=== PATIENT | female | born 1945 | race Caucasian/White ===

== ENCOUNTER → 2016-04-28 | Day surgery (SDC) | payer MEDICARE ==
--- NOTE | 2016-04-05 14:31 | MH ---
cc: AMA FRANKS DATE OF ADMISSION: 04/28/2016 ADMITTING DIAGNOSIS: Cataract right eye. HISTORY OF PRESENT ILLNESS This 70-year-old white female is coming through [facility] for the purpose of a lens extraction of the right eye with intraocular lens implant under local anesthesia. She has noted decreasing visual acuity interfering with her daily activities and elected to have the above procedure. Her best corrected visual acuity in room light in the right eye is 20/40 +2. The left eye has 20/20 -2 and has had cataract surgery in the past. PAST MEDICAL HISTORY The patient has a history of cholesterol problems and hypo thyroid. PAST SURGICAL HISTORY: The surgical history includes the above-mentioned cataract surgery with intraocular lens implant on the left eye and back surgery. MEDICATIONS medications include 1. Synthroid 2. Atorvastatin 3. Multivitamins 4. 81 mg of aspirin. 5. Vitamin D3. 6. Fish oil 7. Calcium 8. Occasionally an allergy pill. ALLERGIES She is not allergic to medication ADHESIVE TAPE. SOCIAL HISTORY She was a two pack per day smoker for 20 years but stopped smoking over 20 years ago and she does not drink alcohol. FAMILY HISTORY: Family history is noncontributory. REVIEW OF SYSTEMS: HEAD: Patient denies severe headaches, dizziness or recent head injury. EARS: Patient denies hearing loss, ear pain, discharge or ringing in the ears. NOSE: Patient denies nasal discharge, obstruction or frequent colds. MOUTH AND THROAT: Patient denies soreness of the mouth or tongue, bleeding gums, trouble swallowing, changes in voice or sore throat. NECK: Patient denies neck pain or swelling, limitation of neck movement or neck injury. CARDIOPULMONARY SYSTEM: Patient denies shortness of breath, orthopnea, chronic cough, sputum production, hemoptysis, chest pain, wheezing, palpitations or light-headedness. GI SYSTEM: Patient denies poor appetite, nausea, vomiting, abdominal pain, ulcers, hemorrhoids or change in bowel habits. SYSTEM: The patient denies urinary frequency, dysuria, change in urine color. NERVOUS SYSTEM: Patient denies convulsions, vertigo, stroke, numbness or weakness. PHYSICAL EXAMINATION VITAL SIGNS: Blood pressure 110/72, pulse 86, respirations 20. HEAD, EYES, EARS, NOSE, AND THROAT: Normocephalic, atraumatic. Nose: Without rhinorrhea. Throat clear. NECK: Supple. CHEST: Clear. HEART: Regular rhythm. ABDOMEN: Without tenderness. EXTREMITIES: Without edema. NEUROLOGIC: Within normal limits. MENTAL STATUS EXAMINATION: Within normal limits. EYE EXAMINATION Cough: The patient's best corrected visual acuity in room light is 20/40 +2 in the right eye and 20/20 -2 in the left. Visual velez are full to confrontation testing. Extraocular muscle exam reveals full versions with orthophoria at distance and near. Pupils are 3.5 mm equal, round, reactive to light without afferent defect. Anterior segment examination reveals nuclear sclerotic and posterior cortical cataract changes in the right eye and a posterior chamber intraocular lens implant in the left. Intraocular pressure is 24 in the right eye and 18 in the left by applanation tonometry. Dilated fundus exam revealed sharp disks with cup-to-disk ratio 0.3 bilaterally. The macula is clear and a posterior vitreous detachment is present in the left eye. Background right eye is within normal limits. IMPRESSION 1. Cataract right eye. 2. Pseudophakia left eye. 3. Posterior vitreous detachment left eye. PLAN: The plan is lens extraction of the right eye with intraocular lens implant under local anesthesia through [facility] surgery. MD MITALI Sargent/blas /2:04 PM /2:15 PM
[~2016-04-28] VITALS: Ht 163.8 cm; Wt 71.0 kg
[~2016-04-28] MED LIST: ASPI1TAB69 PO; ASPI81TA82 PO; ATOR10TA PO; ATOR10TA15 PO; CALC1TAB87 PO; CALC600T10 PO; CALC600T13 PO; CHOL1TAB42 PO; EPINEPHrine HCL (1:1000) 30 MG/30 ML VIAL ONE; FISH100020 PO; HYALURONIDASE/LIDOCAINE/BUPIVACAINE 4.5 ML SYR ONE; HYALURONIDASE/LIDOCAINE/BUPIVACAINE 4.5 ML SYR RIGHT EYE ONE; HYALURONIDASE/LIDOCAINE/BUPIVACAINE 6 ML SYR ONE; HYALURONIDASE/LIDOCAINE/BUPIVACAINE 6 ML SYR RIGHT EYE ONE; LIDOCAINE HCL 1% 20 ML VIAL ONE; MIDAZOLAM HCL 2 MG/2 ML VIAL ONE; MULT-120 PO; MULTCAP2 PO; OMEG100010; PILOCARPINE HCL 2% OPHT SOLN 15 ML BTL LEFT EYE ONE; PILOCARPINE HCL 2% OPHT SOLN 15 ML BTL ONE; PROPARACAINE HCL 0.5% OPHT SOLN 15 ML BTL RIGHT EYE ONE; PROPOFOL 200 MG/20 ML AMP ONE; SODIUM CHLORID 0.9% 500 ML INJ 500 ML ONE; SYNT112T PO; VISCOAT OPHT IRRIG SOLN 0.75 ML SYRINGE LEFT EYE ONE; VITA20002 PO; acetaZOLAMIDE SEQUELS 500 MG SUSTAINED RELEASE CAP ONE
[2016-04-28 07:20] VITALS: PULSE 77
[2016-04-28 07:22] VITALS: BP 130/88; PULSE 77; RESP 18; TEMP 98.4; O2SAT 99
[2016-04-28] MEDS: TROPICAMIDE 1% OPHT SOLN 15 ML BTL RIGHT EYE SCH ×4 (07:30→07:39)
[2016-04-28] MEDS: DICLOFENAC SOD 0.1% OPHT SOLN 2.5 ML BTL RIGHT EYE SCH ×4 (07:30→07:39)
[2016-04-28] MEDS: GATIFLOXACIN 0.5% OPHT SOLN 2.5 ML BTL RIGHT EYE SCH ×4 (07:30→07:39)
[2016-04-28] MEDS: CYCLOPENTOLATE HCL 1% OPHT SOLN 2 ML BTL RIGHT EYE SCH ×4 (07:30→07:39)
[2016-04-28] MEDS: PHENYLEPHRINE HCL 2.5% OPTH SOLN 2 ML BTL RIGHT EYE SCH ×4 (07:30→07:39)
[2016-04-28 09:34] VITALS: PULSE 76
[2016-04-28] MEDS: EPINEPHrine HCL (1:1000) 1 MG/ML VIAL ONE ×2 (10:00)
[2016-04-28] MEDS: ACETYLCHOLINE CHL OPHT SOLN 1:100 2 ML VIAL ONE ×2 (10:00)
[2016-04-28] MEDS: TOBRAMYCIN/DEXAMETHASONE OPTH OINT 3.5 GM TUBE ONE ×2 (10:30)
[2016-04-28 10:40] VITALS: TEMP 97.5
[2016-04-28 11:00] VITALS: BP 138/72; PULSE 82; RESP 14; O2SAT 96
--- NOTE | 2016-04-28 12:51 | MP ---
cc: AMA LANZA DATE OF SURGERY: 04/28/2016 PREOPERATIVE DIAGNOSIS Cataract, right eye. POSTOPERATIVE DIAGNOSIS Cataract, right eye. OPERATION Extracapsular cataract extraction with posterior chamber intraocular lens implant by phacoemulsification, right eye. SURGEON Ama Lanza M.D. ANESTHESIA Local. COMPLICATIONS None. INDICATIONS See history and physical previously dictated. OPERATIVE PROCEDURE The patient had adequate retrobulbar and eyelid blocks administered in the holding area and was brought to the operating room. The right eye was prepped and draped in the usual sterile ophthalmic manner. A lid speculum was inserted in the right eye. A 4-0 silk bridle suture was placed through the conjunctiva near the superior rectus muscle and it was tacked to the drape. A fornix-based conjunctival flap was prepared spanning approximately 5 mm in width. Hemostasis was obtained with wet-field cautery. A 3.5 mm groove was made 1 mm from the limbus and dissected up to the limbus in the form of a scleral pocket incision. A stab incision was then made at the 2 o'clock position. Viscoelastic was injected into the anterior chamber. The anterior chamber was entered with a 2.75 mm keratome through the scleral pocket incision. A 360 degree continuous curvilinear capsulorrhexis was then performed. Hydrodissection was utilized to divide the nucleus into inner and outer components and to separate the cortex from the capsule. Phacoemulsification was then utilized to remove the nucleus. The outer nuclear layer was removed with irrigation and aspiration and short bursts of ultrasound as necessary. The cortex was removed with the irrigation-aspiration handpiece. The posterior capsule was polished with the capsule polisher. Viscoelastic was injected into the capsular bag. The intraocular lens was inspected and found to be in good condition. The lens utilized was an Desmond, model SA60AT with a power of +21 diopters. The lens was inserted into the capsular bag. The viscoelastic in the anterior chamber was then removed with the irrigation-aspiration handpiece. Viscoelastic was also removed from beneath the intraocular lens. The anterior chamber was filled with Miochol-E through the stab incision and pressurized. The wound was checked for leaks at this pressure and normalized pressure, and there were none. The 4-0 bridle suture was removed. The conjunctival flap was brought down over the wound and secured with cautery. Pilocarpine 2% eye drops were instilled topically. The lid speculum was removed. TobraDex ophthalmic ointment was applied. The eye was double patched and shielded. The patient tolerated the procedure well and left the Operating Room in satisfactory condition. MD MITALI Sargent/ESTRELLA /10:44 AM /12:49 PM
== END | disposition home or self-care (01) ==
LOC: CSDC 06:49
PROVIDERS: ATTEND Ophthalmology
DX: H25.811 Combined forms of age-related cataract, right eye (principal); Z79.82 Long term (current) use of aspirin; Z87.891 Personal history of nicotine dependence
CPT/HCPCS: 00142; 66984; J0171; J2250; J7040; V2632